=== PATIENT | male | born 1965 | race Asian ===

== ENCOUNTER 2018-03-24 08:56 | Emergency (ER) | payer OTHER ==
[~2018-03-24] VITALS: Ht 185.4 cm; Wt 97.5 kg
[2018-03-24 09:11] VITALS: TEMP 98.2
[2018-03-24 09:36] LABS: PLATELET COUNT 158 K/uL (142-355)
[2018-03-24 09:42] LABS: POTASSIUM 4.1 mmol/L (3.6-5.2); SODIUM 139 mmol/L (136-145)
[2018-03-24 11:08] VITALS: BP 132/84
== END 2018-03-24 11:08 | disposition home or self-care (01) ==
LOC: ED 08:56
PROVIDERS: Allergy & Immunology
DX: R07.89 Other chest pain (principal)
CPT/HCPCS: 80053; 84484; 85027; 93005; 96372; 99283; J1885